=== PATIENT | female | born 1940 | race Caucasian/White ===

== ENCOUNTER 2017-04-18 18:18 | Emergency (ER) | payer OTHER ==
[~2017-04-18] VITALS: Ht 175.3 cm; Wt 101.2 kg
--- NOTE | ~2017-04-18 | EKG ---
[place] [address] [facility] [place] [address] ELECTROCARDIOGRAM REPORT Name: JOELLE DE GUZMAN Room [id number] Admission: 04/18/17 Attend Phys: Discharge: 04/19/17 Date of : 44 Report #: [id number] THIS REPORT FOR: //name// [facility] ED Test Date: 2017-04-18 Test Time: 18:29:45 Pat Name: JOELLE DE GUZMAN Department: Room: Gender: F [employer]: [id number] : 1940 Requested By: Soto Vasquez Order Number: [id number] MD: Stu Matta Measurements Intervals [place] Rate: 56 P: 2 IL: 166 QRS: 0 QRSD: 113 T: 9 QT: 451 QTc: 436 Interpretive Statements Sinus bradycardia Nonspecific T wave abnormality No previous ECG available for comparison Electronically Signed On 04-20-2017 9:15:51 CDT by Stu Matta [email or web address] <ELECTRONICALLY SIGNED> By: Stu Matta MD, [facility] 04/20/17 0915 1829 1829 Stu Matta MD, [facility] /EPI
[2017-04-18] MEDS ORDERED: UNICOMPLEX M TA1 TA1 PO (18:33)
[2017-04-18] MEDS ORDERED: HYDROCODONE-AP1 EAC6 PO (18:33)
[2017-04-18] MEDS ORDERED: MIRALAX17 GM PO (18:33)
[2017-04-18] MEDS ORDERED: PRAVACHOL40 MG PO (18:34)
[2017-04-18] MEDS ORDERED: TUBERSOL1 ML/1 VIA ID (18:34)
[2017-04-18] MEDS ORDERED: VENTOLIN HFA 1818 GM INH (18:34)
[2017-04-18] MEDS ORDERED: NORVASC5 MG PO (18:34)
[2017-04-18] MEDS ORDERED: BENADRYL25 MG PO (18:35)
[2017-04-18] MEDS ORDERED: ASPIRIN325 PO (18:35)
[2017-04-18] MEDS ORDERED: PULMICORT0.5 MG/22 INH (18:35)
[2017-04-18] MEDS ORDERED: COREG3.125 MG PO (18:35)
[2017-04-18] MEDS ORDERED: LASIX 40 MG TAB40 M2 PO (18:36)
[2017-04-18] MEDS ORDERED: IPRAT-ALBUT 0.5-3 ML IH (18:36)
[2017-04-18] MEDS ORDERED: DOXYCYCLINE 10100 MG PO (18:36)
[2017-04-18] MEDS ORDERED: IMDUR 30 MG TAB30 M1 PO (18:36)
[2017-04-18] MEDS ORDERED: NEURONTIN 300300 M1 PO (18:36)
[2017-04-18] MEDS ORDERED: DUONEB 2.5-0.5 M3 ML INH (18:36)
[2017-04-18] MEDS ORDERED: LISINOPRIL10 MG PO (18:37)
[2017-04-18 18:40] LABS: HEMOGLOBIN 10.3 gm/dL (12.0-15.0); MCH 27.9 pg (26.0-34.0); MCHC 32.1 g/dL (28.0-37.0); MCV 87.1 fL (80.0-100.0); PLATELET COUNT 238 thou/uL (150-400); RBC 3.68 mil/uL (4.20-5.00); RDW 16.4 % (10.5-14.5); WBC 6.3 thou/uL (4.0-11.0)
[2017-04-18 18:43] LABS: MANUAL DIFF YES
[2017-04-18 18:50] LABS: ANION GAP 1 mmol/L (7-16); BUN 39 mg/dL (7-18); CALCIUM 8.3 mg/dL (8.5-10.1); CHLORIDE 99 mmol/L (98-107); CO2 40 mmol/L (21-32); CREATININE 1.3 mg/dL (0.6-1.0); GLUCOSE 103 mg/dL (74-106); POTASSIUM 4.3 mmol/L (3.5-5.1); SODIUM 140 mmol/L (136-145)
[2017-04-18 18:53] LABS: APTT 29.4 Seconds (24.5-32.8); PROTIME 10.6 Seconds (9.3-11.4)
[2017-04-18 18:59] LABS: ABSOLUTE NEUTROPHILS 4.1 thou/uL (1.4-8.2); PLATELET ESTIMATE NORMAL; TOTAL CELL COUNT 100
[2017-04-18 19:01] LABS: ALBUMIN 2.9 g/dL (3.4-5.0); ALKALINE PHOSPHATASE 69 U/L (46-116); MAGNESIUM 2.3 mg/dL (1.8-2.4); NT-PRO BRAIN NAT PEPTIDE 970 pg/mL (<300); SGOT 21 U/L (15-37); SGPT 20 U/L (30-65); TOTAL BILIRUBIN 0.2 mg/dL (<0.1-1.0); TOTAL PROTEIN 7.7 g/dL (6.4-8.2); TROPONIN-I < 0.04 ng/mL (<0.04-0.07)
[2017-04-18 19:47] LABS: ABG SAMPLE TYPE ARTERIAL; BE(vivo) 11.3 mmol/L (-2 to +3); HCO3 39.5 mmol/L (22.0-26.0); LACTATE 1.32 mmol/L (0.5-2.0); O2(CT) 13.3 mL/dL (15.0-23.0); O2Hb 87.4 % (92.0-98.0); PO2 58.5 mmHg (80.0-100.0); pH 7.342 (7.360-7.450); sO2 87.5 % (92.0-98.0); tCO2 41.8 mmol/L (24.0-30.0)
[2017-04-18 19:48] LABS: PCO2 74.5 mmHg (35.0-45.0); STICK SITE R.RADIAL
[2017-04-19 01:50] VITALS: BP 116/52
== END 2017-04-19 01:53 | disposition short-term general hospital (02) ==
LOC: ER 18:18
PROVIDERS: Emergency Medicine
DX: J18.9 Pneumonia, unspecified organism (principal); J98.11 Atelectasis; Z88.1 Allergy status to other antibiotic agents; Z87.891 Personal history of nicotine dependence